=== PATIENT | male | born 1950 | race Caucasian/White ===

== ENCOUNTER 2017-08-18 16:41 | Emergency (ER) | payer MEDICARE, OTHER ==
[~2017-08-18 16:41] MED LIST: ASP325 PO; BUPR-128 PO; CINN500C12 PO; CITA-128 PO; CRAN500C12 PO; FLUO-177 PO; FURO-45 PO; GLIM4TAB49 PO; INSU100V24 SQ; LISI-374 PO; LOVA20TA99 PO; MAGN400T4 PO; MET850 PO; MULT-859 PO; POTA99TA2 PO; [UNRECOGNIZED DRUG - CODE] PO
--- NOTE | 2017-08-18 16:49 | ER Report ---
History and Physical Time Seen By MD: 16:49 Hx. of Stated Complaint: PT REPORTS HE WAS LEANING OVER PUMPING UP AND INNERTUBE AND "GRAVITY TOOK OVER" AND HE "FELL ON HIS CHEST" ON SATURDAY HPI/ROS CHIEF COMPLAINT: Chest pain HISTORY OF PRESENT ILLNESS: 67-year-old male patient presents to emergency room with complaint of chest pain. Patient states that he was picking up an inflatable swelling pool that his granddaughter use. He states that it was deflated and he was rolling up while he was doing that he lost his balance fell over onto his chest. He states that that was 3 days ago. He states that he's been having worsening pain. He states that he became concerned today when he started having cough, chills. He denies having any fevers, nausea, vomiting or diarrhea. Patient states he has pain with inspiration and expiration. He states that he even has pain that radiates up into the upper part of the chest when he holds breath. REVIEW OF SYSTEMS: Respiratory: As noted above Cardiovascular: As noted above Gastrointestinal: No vomiting, no abdominal pain. Musculoskeletal: No back pain. Allergies: Coded Allergies: No Known Drug Allergies (Verified , 08/18/17) Home Meds Active Scripts Ketorolac Tromethamine (KETOROLAC TROMETHAMINE) 10 Mg Tab, 10 MG PO Q6H, #18 TAB Prov:BORISREGINA [employer]Y PLAN DEALER 08/18/17 Reported Medications Bupropion Hcl (WELLBUTRIN) 100 Mg Tablet, 100 MG PO BID 09/22/12 Insulin Lispro 100 Un/Ml Vial (HUMALOG 100 U/ML VIAL) 100 Unit/1 Ml Vial, 2 - 10 UNIT SQ SS 09/22/12 Potassium Gluconate (POTASSIUM GLUCONATE) 99 Mg Tablet, 595 MG PO DAILY 09/22/12 Multivits,Ca,Minerals/Iron/Fa (THERA-M TABLET) 1 Each Tablet, 1 EACH PO DAILY 09/22/12 Magnesium Oxide (MAG-OXIDE) 400 Mg Tablet, 400 MG PO TID 09/22/12 Furosemide (FUROSEMIDE) 20 Mg Tablet, 1 TAB PO DAILY TAKE ONE TABLET BY MOUTH EVERY 6 HOURS 09/22/12 Fluoxetine Hcl (FLUOXETINE HCL) 20 Mg Capsule, 30 MG PO DAILY 09/22/12 Cranberry Extract (CRANBERRY CONCENTRATE) 500 Mg Capsule, 1 EACH PO DAILY 09/22/12 Aspirin (Aspirin) 325 Mg Tab, 325 MG PO ONCE, 0 Refills 03/10/10 Lovastatin (Lovastatin) 20 Mg Tablet, 20 MG PO DAILY, 0 Refills 03/10/10 Lisinopril (Lisinopril) 40 Mg Tablet, 40 MG PO DAILY, 0 Refills 03/10/10 Levothyroxine Sodium (Levothroid) 100 Mcg Tablet, 100 MCG PO DAILY, 0 Refills 03/10/10 Metformin Hcl (Glucophage) 850 Mg Tab, 1000 MG PO BIDBS, 0 Refills 03/10/10 Past Medical/Surgical History Patient has a past medical history of hypertension, diabetes, hypothyroidism, depression. Patient has surgical history of vasectomy, carpal tunnel release bilaterally, hernia repair, shoulder surgery. Reviewed Nurses Notes: Yes Hx Smoking: No Hx Substance Use Disorder: No Hx Alcohol Use: Yes Constitutional Vital Sign - Last 24 Hours 08/18/17 08/18/17 08/18/17 08/18/17 16:45 16:45 16:56 17:00 Temp 99.4 Pulse 83 78 Resp 18 B/P (MAP) 140/73 140/73 (95) 106/64 (78) Pulse Ox 93 91 O2 Delivery Room Air 08/18/17 08/18/17 08/18/17 08/18/17 17:05 17:30 17:35 17:45 Pulse 86 81 B/P (MAP) 135/64 (87) 119/71 (87) Pulse Ox 88 88 08/18/17 08/18/17 08/18/17 08/18/17 17:50 18:00 18:05 18:15 Pulse 89 94 B/P (MAP) 114/65 (81) 120/66 (84) Pulse Ox 86 87 08/18/17 08/18/17 08/18/17 08/18/17 18:20 18:30 18:35 18:40 Pulse 91 96 93 B/P (MAP) 126/63 (84) Pulse Ox 88 90 88 08/18/17 18:45 Pulse 92 B/P (MAP) 118/64 (82) Pulse Ox 88 Physical Exam General Appearance: The patient is alert, has no immediate need for airway protection and no current signs of toxicity. Respiratory: Chest is mildly tender, lungs are clear to auscultation. Cardiac: regular rate and rhythm Gastrointestinal: Abdomen is soft and non tender, no masses, bowel sounds normal. Musculoskeletal: Neck: Neck is supple and non tender. Extremities have full range of motion and are non tender. Skin: No rashes or lesions. DIFFERENTIAL DIAGNOSIS: After history and physical exam differential diagnosis was considered for chest pain including but not limited to myocardial ischemia, pericarditis pulmonary embolus, chest wall pain, pleural inflammation and pulmonary infectious causes. Medical Decision Making Data Points Result Diagram: 08/18/17 1705 08/18/17 1705 Laboratory Hematology Test 08/18/17 17:05 Red Blood Count 4.03 M/uL (4.00-5.60) Mean Corpuscular Volume 96.2 fL (80.0-96.0) Mean Corpuscular Hemoglobin 33.3 pg (26.0-33.0) Mean Corpuscular Hemoglobin Concent 34.6 g/dL (32.0-36.0) Red Cell Distribution Width 14.3 % (11.5-14.5) Mean Platelet Volume 9.1 fL (7.2-11.1) Neutrophils (%) (Auto) 73.7 % (39.4-72.5) Lymphocytes (%) (Auto) 15.0 % (17.6-49.6) Monocytes (%) (Auto) 6.7 % (4.1-12.4) Eosinophils (%) (Auto) 2.3 % (0.4-6.7) Basophils (%) (Auto) 2.3 % (0.3-1.4) Nucleated RBC Relative Count (auto) 0.0 /100WBC Neutrophils # (Auto) 6.6 K/uL (2.0-7.4) Lymphocytes # (Auto) 1.4 K/uL (1.3-3.6) Monocytes # (Auto) 0.6 K/uL (0.3-1.0) Eosinophils # (Auto) 0.2 K/uL (0.0-0.5) Basophils # (Auto) 0.2 K/uL (0.0-0.1) Nucleated RBC Absolute Count (auto) 0.00 K/uL Sodium Level 138 mmol/L (137-145) Potassium Level 4.3 mmol/L (3.5-5.0) Chloride Level 102 mmol/L (98-107) Carbon Dioxide Level 26 mmol/L (22-30) Blood Urea Nitrogen 14 mg/dl (9-21) Creatinine 1.00 mg/dl (0.66-1.25) Glomerular Filtration Rate Calc > 60.0 Random Glucose 290 mg/dl (75-110) Calcium Level 9.1 mg/dl (8.4-10.2) Total Bilirubin 0.3 mg/dl (0.2-1.3) Aspartate Amino Transf (AST/SGOT) 34 U/L (0-35) Alanine Aminotransferase (ALT/SGPT) 36 U/L (0-56) Alkaline Phosphatase 91 U/L (0-126) Troponin I < 0.012 ng/ml Total Protein 6.4 gm/dl (6.3-8.2) Albumin 3.5 g/dl (3.5-5.0) Chemistry Test 08/18/17 17:05 White Blood Count 9.0 k/uL (4.5-11.0) Red Blood Count 4.03 M/uL (4.00-5.60) Hemoglobin 13.4 g/dL (14.0-18.0) Hematocrit 38.8 % (42.0-52.0) Mean Corpuscular Volume 96.2 fL (80.0-96.0) Mean Corpuscular Hemoglobin 33.3 pg (26.0-33.0) Mean Corpuscular Hemoglobin Concent 34.6 g/dL (32.0-36.0) Red Cell Distribution Width 14.3 % (11.5-14.5) Platelet Count 171 K/uL (150-450) Mean Platelet Volume 9.1 fL (7.2-11.1) Neutrophils (%) (Auto) 73.7 % (39.4-72.5) Lymphocytes (%) (Auto) 15.0 % (17.6-49.6) Monocytes (%) (Auto) 6.7 % (4.1-12.4) Eosinophils (%) (Auto) 2.3 % (0.4-6.7) Basophils (%) (Auto) 2.3 % (0.3-1.4) Nucleated RBC Relative Count (auto) 0.0 /100WBC Neutrophils # (Auto) 6.6 K/uL (2.0-7.4) Lymphocytes # (Auto) 1.4 K/uL (1.3-3.6) Monocytes # (Auto) 0.6 K/uL (0.3-1.0) Eosinophils # (Auto) 0.2 K/uL (0.0-0.5) Basophils # (Auto) 0.2 K/uL (0.0-0.1) Nucleated RBC Absolute Count (auto) 0.00 K/uL Glomerular Filtration Rate Calc > 60.0 Calcium Level 9.1 mg/dl (8.4-10.2) Total Bilirubin 0.3 mg/dl (0.2-1.3) Aspartate Amino Transf (AST/SGOT) 34 U/L (0-35) Alanine Aminotransferase (ALT/SGPT) 36 U/L (0-56) Alkaline Phosphatase 91 U/L (0-126) Troponin I < 0.012 ng/ml Total Protein 6.4 gm/dl (6.3-8.2) Albumin 3.5 g/dl (3.5-5.0) EKG/Imaging EKG Interpretation 12 lead EKG: Rhythm: normal sinus rhythm with ventricular rate of 70 bpm. Newcomb: Left axis deviation QRS: Right bundle branch block ST segments: normal Imaging CHEST PA AND LAT COMPARISONS: None. ADDITIONAL PERTINENT HISTORY: Fall with pain FINDINGS: Cardiomediastinal silhouette: Negative. Pulmonary vasculature: Negative. Lung ross: Elevation of the right hemidiaphragm. Otherwise negative Pleural spaces: Negative. Osseous structures: Spondylitic change involving the thoracic spine. Otherwise negative Surrounding soft tissues: Negative. IMPRESSION: 1. Elevation of the right hemidiaphragm. 2. No evidence of acute cardiopulmonary disease. Report Dictated By: Kurtis Hines MD at 08/18/2017 6:03 PM Report E-Signed By: Kurtis Hines MD at 08/18/2017 6:04 PM Examination: Bilateral rib series Comparisons: None. History: Fall with pain. Findings: Views of the ribs bilaterally demonstrate no evidence of fracture or other osseous abnormalities. IMPRESSION: Normal views of the ribs. Report Dictated By: Kurtis Hines MD at 08/18/2017 6:05 PM Report E-Signed By: Kurtis Hines MD at 08/18/2017 6:10 PM ED Course/Re-evaluation ED Course Patient was admitted to an exam room, history and physical were obtained. Differential diagnoses were considered. On examination patient does have some tenderness to the chest, especially along the sternum. There is no bruising noted. A CBC, CMP, bilateral rib series, chest x-ray, EKG, troponin were done. She was negative, labs were unremarkable, except the patient did have an elevated blood sugar. X-rays of the ribs were negative. EKG showed no ST elevation or acute findings. I discussed the findings with patient. Patient states he states he feels better that he's not having any serious problems. I discussed with the patient that I believe that he is likely having some bruising to the ribs secondary to his fall. We will go ahead and treat him with Toradol for short. Time. I discussed with with patient who verbalized understanding and agreement. He is to return to emergency room if condition worsens. Patient verbalized understanding and agreement with plan. Decision to Disposition Date: August 18, 2017 Decision to Disposition Time: 18:36 Depart Departure Latest Vital Signs Vital Signs Date Time Temp Pulse Resp B/P (MAP) Pulse Ox O2 Delivery O2 Flow Rate FiO2 08/18/17 18:45 92 118/64 (82) 88 08/18/17 16:45 99.4 18 Room Air Impression: Primary Impression: Chest wall contusion Condition: Improved Disposition: HOME OR SELF-CARE New Scripts Ketorolac Tromethamine (KETOROLAC TROMETHAMINE) 10 Mg Tab 10 MG PO Q6H, #18 TAB Prov: REGINA ESCALANTE 08/18/17 Patient Instructions: Contusion in Adults (ED) Additional Instructions: Ice ribs. Limit activity by pain. Get plenty of rest. Take Tylenol as needed for pain. Make sure that you are taking deep breaths. Follow up with your primary care provider in the next week. Return to the ER if condition worsens. Problem Qualifiers Primary Impression: Chest wall contusion Encounter type: initial encounter Laterality: unspecified laterality Qualified Codes: S20.219A - Contusion of unspecified front wall of thorax, initial encounter REGINA ESCALANTE August 18, 2017 16:49
--- NOTE | 2017-08-18 17:11 | EKG ---
FACILITY: [facility] PATIENT NAME: AMELIA CAZARES : [id number] MR: [id number] V: [id number] EXAM DATE: ORDERING PHYSICIAN: REGINA ESCALANTE TECHNOLOGIST: LACIE Test Reason : CP Blood Pressure : / mmHG Vent. Rate : 078 BPM Atrial Rate : 078 BPM P-R Int : 148 ms QRS Dur : 152 ms QT Int : 402 ms P-R-T Axes : 061 -70 051 degrees QTc Int : 458 ms Normal sinus rhythm Left axis deviation Right bundle branch block Abnormal ECG When compared with ECG of 22-SEP-2012 10:07, No significant change was found Confirmed by JANELLE JOHNSON ([id number]) on 08/18/2017 8:38:18 PM Referred By: RADHA Confirmed By:JANELLE JOHNSON
[2017-08-18 17:18] LABS: PLATELET COUNT, AUTOMATED 171 K/uL (150-450)
--- NOTE | 2017-08-18 18:08 | RADIOLOGY IMAGING REPORT ---
[place] [facility] [place]IENT NAME: Marquis Thorpe : 1950 MR: [id number] V: [id number] EXAM DATE: ORDERING PHYSICIAN: REGINA ESCALANTE TECHNOLOGIST: Location: [facility] Patient: Marquis Thorpe : 1950 Visit/Account:[id number] Date of Sevice: 08/18/2017 CHEST PA AND LAT COMPARISONS: None. ADDITIONAL PERTINENT HISTORY: Fall with pain FINDINGS: Cardiomediastinal silhouette: Negative. Pulmonary vasculature: Negative. Lung ross: Elevation of the right hemidiaphragm. Otherwise negative Pleural spaces: Negative. Osseous structures: Spondylitic change involving the thoracic spine. Otherwise negative Surrounding soft tissues: Negative. IMPRESSION: 1. Elevation of the right hemidiaphragm. 2. No evidence of acute cardiopulmonary disease. Report Dictated By: Kurtis Hines MD at 08/18/2017 6:03 PM Report E-Signed By: Kurtis Hines MD at 08/18/2017 6:04 PM WSN:[id number]
--- NOTE | 2017-08-18 18:14 | RADIOLOGY IMAGING REPORT ---
FACILITY: [facility] - [place] PATIENT NAME: Marquis Thorpe : 1950 MR: [id number] V: [id number] EXAM DATE: ORDERING PHYSICIAN: REGINA ESCALANTE TECHNOLOGIST: Location: [facility] - [place] Patient: Marquis Thorpe : 1950 Visit/Account:[id number] Date of Sevice: 08/18/2017 Examination: Bilateral rib series Comparisons: None. History: Fall with pain. Findings: Views of the ribs bilaterally demonstrate no evidence of fracture or other osseous abnormalities. IMPRESSION: Normal views of the ribs. Report Dictated By: Kurtis Hines MD at 08/18/2017 6:05 PM Report E-Signed By: Kurtis Hines MD at 08/18/2017 6:10 PM WSN:[id number]
[2017-08-18] MEDS ORDERED: KET10 PO (18:38)
[2017-08-18] MEDS ORDERED: KETOROLAC TROM 10 MG TAB TH PO ONE (18:40)
[2017-08-18] MEDS ORDERED: KETOROLAC 15 MG/ML VIAL IVP ONE (18:40)
[2017-08-18 18:45] VITALS: BP 118/64
== END 2017-08-18 18:42 | disposition home or self-care (01) ==
LOC: ER 16:47
DX: S20.219A Contusion of unspecified front wall of thorax, initial encounter (principal)
CPT/HCPCS: 71046; 71111; 84484; 85025; 93005; 96374; 99284; J1885; 82040; 82247; 82310; 82374; 82435; 82565; 82947; 84075; 84132; 84155; 84295; 84450; 84460; 84520

== ENCOUNTER 2018-03-20 08:25 | Emergency (ER) | payer MEDICARE, OTHER ==
[~2018-03-20 08:25] MED LIST changes: +KET10 PO
--- NOTE | 2018-03-20 08:51 | ER Report ---
History and Physical Time Seen By MD: 08:51 Hx. of Stated Complaint: PT STATES HE THINKS HE HAD GOUT LAST WEEK HE LOOKED IT UP ON THE INTERNET. LAST NIGHT HE SLIPPED ON ICE AND HEARD A POP, AND IS UNABLE TO BEAR WEIGHT HPI/ROS CHIEF COMPLAINT: Left foot pain HISTORY OF PRESENT ILLNESS: Patient is a 68 year old male with past medical history for insulin-dependent type II diabetes, hypercholesterol and hypertension. Presenting with left foot pain. Patient states that he's had soreness to the dorsum of his left foot for approximately one week. Denies any redness to the foot or any of the joints area and states he thought it was "gout" after doing an Internet web search. Last evening he slipped on the ice bout actually falling but his pain well and bleeding became much more severe. He states with just ice and rest the pain is minimal but if he tries to bear weight pain is excruciating. Further states that last evening he heard "cracks and pops" the affected foot while in bed. Patient has normal ambulation however today he presents with a walking cane secondary to discomfort. Allergies: Coded Allergies: No Known Drug Allergies (Verified , 03/20/18) Home Meds Reported Medications Bupropion Hcl (WELLBUTRIN) 100 Mg Tablet, 100 MG PO BID 09/22/12 Insulin Lispro 100 Un/Ml Vial (HUMALOG 100 U/ML VIAL) 100 Unit/1 Ml Vial, 2 - 10 UNIT SQ SS 09/22/12 Potassium Gluconate (POTASSIUM GLUCONATE) 99 Mg Tablet, 595 MG PO DAILY 09/22/12 Multivits,Ca,Minerals/Iron/Fa (THERA-M TABLET) 1 Each Tablet, 1 EACH PO DAILY 09/22/12 Furosemide (FUROSEMIDE) 20 Mg Tablet, 1 TAB PO DAILY TAKE ONE TABLET BY MOUTH EVERY 6 HOURS 09/22/12 Fluoxetine Hcl (FLUOXETINE HCL) 20 Mg Capsule, 30 MG PO DAILY 09/22/12 Cranberry Extract (CRANBERRY CONCENTRATE) 500 Mg Capsule, 1 EACH PO DAILY 09/22/12 Aspirin (Aspirin) 325 Mg Tab, 325 MG PO ONCE, 0 Refills 03/10/10 Lovastatin (Lovastatin) 20 Mg Tablet, 20 MG PO DAILY, 0 Refills 03/10/10 Lisinopril (Lisinopril) 40 Mg Tablet, 40 MG PO DAILY, 0 Refills 03/10/10 Levothyroxine Sodium (Levothroid) 100 Mcg Tablet, 100 MCG PO DAILY, 0 Refills 03/10/10 Metformin Hcl (Glucophage) 850 Mg Tab, 1000 MG PO BIDBS, 0 Refills 03/10/10 Discontinued Reported Medications Magnesium Oxide (MAG-OXIDE) 400 Mg Tablet, 400 MG PO TID 09/22/12 Discontinued Scripts Ketorolac Tromethamine (KETOROLAC TROMETHAMINE) 10 Mg Tab, 10 MG PO Q6H, #18 TAB Prov:REGINA ESCALANTE SILVERSMITH APPRENTICE 08/18/17 Past Medical/Surgical History Hypothyroidism, hypertension, insulin-dependent type II diabetes. Hx Smoking: No Hx Substance Use Disorder: No Hx Alcohol Use: Yes Constitutional Vital Sign - Last 24 Hours 03/20/18 08:30 Temp 97.8 Pulse 92 Resp 20 B/P (MAP) 148/76 Pulse Ox 88 O2 Delivery Room Air Physical Exam General appearance: alert no distress Left ankle: There is no significant swelling. There is no obvious deformity to the ankle. There is moderate tenderness to the lateral malleolus. Ankle joint is stable and there is no tenderness over the achilles tendon. The foot is noted for no evidence of rash or erythema. Pain is subjective to the dorsum of the foot also to the plantar surface. There does not appear to be any open wounds to the foot. Neurologic exam: The patient has normal sensation distal to the injury. Vascular exam: Normal pulses and capillary refill in the foot [ ] DIFFERENTIAL DIAGNOSIS: After history and physical exam differential diagnosis was considered for ankle injury including sprain, fracture, dislocation and soft tissue injury. Medical Decision Making EKG/Imaging Imaging [place]AC[place] [facility] [place]IENT NAME: Marquis Thorpe : 1950 MR: [id number] V: [id number] EXAM DATE: ORDERING PHYSICIAN: JADA AFRR TECHNOLOGIST: Location: [facility] - [place] Patient: Marquis Thorpe : 1950 Visit/Account:[id number] Date of Sevice: 03/20/2018 Exam type: FOOT 3 VIEW LEFT History: Pain on top and bottom of foot after fall Comparison: None. Findings: The MTP joints are dorsiflexed therefore the proximal aspect of the proximal phalanges not ideally evaluated due to overlapping shadows. There is no definite evidence of acute fracture or dislocation seen. There are mild degenerative changes at the interphalangeal joints.. Degenerative changes are also seen at the tarsal metatarsal articulations best appreciated on the lateral view. There is a small left calcaneal spur. There are enthesopathic changes at the insertion the Achilles tendon. Several well-corticated bony densities project along the plantar surface at the level of the calcaneal cuboid articulation best seen on the lateral view although these appear to be chronic IMPRESSION: 1. Degenerative changes as described although no gross evidence of acute fracture or dislocation involving the left foot Report Dictated By: Tammy Ferrer MD at 03/20/2018 10:00 AM Report E-Signed By: Tammy Ferrer MD at 03/20/2018 10:04 AM WSN:[email or web address] ED Course/Re-evaluation ED Course 03/20/2018 9:14:15 am After history and physical exam was performed differential diagnosis was formulated which includes but is not limited to foot sprain, foot fracture, less likely gout, less likely arthritis. Plan at this time will be x-ray of the left foot. Decision to Disposition Date: Mar 20, 2018 Decision to Disposition Time: 10:31 Depart Departure Latest Vital Signs Vital Signs Date Time Temp Pulse Resp B/P (MAP) Pulse Ox O2 Delivery O2 Flow Rate FiO2 03/20/18 08:30 97.8 92 20 148/76 88 Room Air Impression: Primary Impression: Sprain of left foot Condition: Improved Disposition: HOME OR SELF-CARE Referrals: VICKY HAWLEY MD If the pain persists after 7 days call to schedule a follow-up appointment. Patient Instructions: Foot Sprain (ED) Problem Qualifiers Primary Impression: Sprain of left foot Encounter type: initial encounter Qualified Codes: S93.602A - Unspecified sprain of left foot, initial encounter JADA FARR MD Mar 20, 2018 08:51
--- NOTE | 2018-03-20 10:10 | RADIOLOGY IMAGING REPORT ---
FACILITY: [facility] PATIENT NAME: Marquis Thorpe : 1950 MR: [id number] V: [id number] EXAM DATE: ORDERING PHYSICIAN: JADA FARR TECHNOLOGIST: Location: [facility] - [place] Patient: Marquis Thorpe : 1950 Visit/Account:[id number] Date of Sevice: 03/20/2018 Exam type: FOOT 3 VIEW LEFT History: Pain on top and bottom of foot after fall Comparison: None. Findings: The MTP joints are dorsiflexed therefore the proximal aspect of the proximal phalanges not ideally ev aluated due to overlapping shadows. There is no definite evidence of acute fracture or dislocation s een. There are mild degenerative changes at the interphalangeal joints.. Degenerative changes are a lso seen at the tarsal metatarsal articulations best appreciated on the lateral view. There is a sma ll left calcaneal spur. There are enthesopathic changes at the insertion the Achilles tendon. Sever al well-corticated bony densities project along the plantar surface at the level of the calcaneal cub oid articulation best seen on the lateral view although these appear to be chronic IMPRESSION: 1. Degenerative changes as described although no gross evidence of acute fracture or dislocation inv olving the left foot Report Dictated By: Tammy Ferrer MD at 03/20/2018 10:00 AM Report E-Signed By: Tammy Ferrer MD at 03/20/2018 10:04 AM WSN:[email or web address]
[2018-03-20 10:41] VITALS: BP 123/67
== END 2018-03-20 10:39 | disposition home or self-care (01) ==
LOC: ER 08:42
DX: S93.602A Unspecified sprain of left foot, initial encounter (principal)
CPT/HCPCS: 99283

== ENCOUNTER → 2018-10-28 | Outpatient (CLI) | payer MEDICARE, OTHER ==
[2018-10-28 09:09] LABS: PLATELET COUNT, AUTOMATED 201 K/uL (150-450)
== END ==
LOC: LAB 08:51
PROVIDERS: ATTEND Anesthesiology
DX: Z01.810 Encounter for preprocedural cardiovascular examination (principal); Z01.812 Encounter for preprocedural laboratory examination; S83.242A Other tear of medial meniscus, current injury, left knee, initial encounter; E11.9 Type 2 diabetes mellitus without complications; E07.9 Disorder of thyroid, unspecified
CPT/HCPCS: 36415; 82040; 82247; 82310; 82374; 82435; 82565; 82947; 83036; 84075; 84132; 84155; 84295; 84443; 84450; 84460; 84520; 85025

== ENCOUNTER → 2018-10-29 | Outpatient (CLI) | payer MEDICARE, OTHER ==
--- NOTE | 2018-10-29 13:33 | EKG ---
FACILITY: [facility] PATIENT NAME: AMELIA CAZARES : [id number] MR: [id number] V: [id number] EXAM DATE: ORDERING PHYSICIAN: MAYELIN BOTELLO TECHNOLOGIST: KNEE Test Reason : PREOP-LEFT Blood Pressure : / mmHG Vent. Rate : 083 BPM Atrial Rate : 083 BPM P-R Int : 154 ms QRS Dur : 150 ms QT Int : 408 ms P-R-T Axes : 059 -54 045 degrees QTc Int : 479 ms Sinus rhythm Left axis Right bundle branch block Abnormal ECG When compared with ECG of 18-AUG-2017 16:47, No significant change was found Confirmed by MATT CASTRO ([id number]) on 10/29/2018 5:13:20 PM Referred By: AYAN Confirmed By:MATT CASTRO
== END ==
LOC: RESP 12:46
PROVIDERS: ATTEND Anesthesiology
DX: Z01.812 Encounter for preprocedural laboratory examination (principal); Z01.818 Encounter for other preprocedural examination; S83.242A Other tear of medial meniscus, current injury, left knee, initial encounter; E11.9 Type 2 diabetes mellitus without complications; E07.9 Disorder of thyroid, unspecified; R94.31 Abnormal electrocardiogram [ECG] [EKG]
CPT/HCPCS: 93005